=== PATIENT | male | born 1975 | race Caucasian/White ===

== ENCOUNTER 2017-05-06 10:32 | Emergency (ER) | payer OTHER ==
--- NOTE | 2017-05-06 10:47 | UC ---
Abdominal Pain Male HPI - HPI Summary HPI Summary: 41 year old male presents with complains of nausea/vomiting/diarrhea/stomach cramps. - History of Current Complaint Stated Complaint: N/V/D HEADACHE Time Seen by Provider: 05/06/17 10:46 - Allergies/Home Medications Allergies/Adverse Reactions: Allergies Allergy/AdvReac Type Severity Reaction Status Date / Time No Known Allergies Allergy Verified 05/06/17 10:55 Home Medications: Home Medications Iqouicl-Edhdyonzzkoce-Bmiflxws [Excedrin Migraine 250-250-65 mg] 1 tab PO ONCE 05/06/17 [History Confirmed 05/06/17] PMH/Surg Hx/FS Hx/Imm Hx Other History Of: Negative For: HIV, Hepatitis B, Hepatitis C - Surgical History Surgical History: Yes Surgery Procedure, Year, and Place: [place] [facility] [place], [facility] - Family History Known Family History: Positive: Other - mrsa Negative: Renal Disease, Blood Disorder - Social History Alcohol Use: None Substance Use Type: None Smoking Status (MU): Heavy Every Day Tobacco Smoker Type: Cigarettes Amount Used/How Often: 1 PPD Length of Time of Smoking/Using Tobacco: On and Off for 19 Years Have You Smoked in the Last Year: Yes Household Exposure Type: Cigarettes Review of Systems Constitutional: Negative Skin: Negative Eyes: Negative ENT: Negative Respiratory: Negative Cardiovascular: Negative Gastrointestinal: Abdominal Pain, Vomiting, Diarrhea, Nausea Genitourinary: Negative Motor: Negative Neurovascular: Negative Musculoskeletal: Negative Neurological: Negative Psychological: Negative All Other Systems Reviewed And Are Negative: Yes Physical Exam Triage Information Reviewed: Yes Eye Exam: Normal ENT Exam: Normal Dental Exam: Normal Neck exam: Normal Neck: Positive: 1 Respiratory Exam: Normal Cardiovascular Exam: Normal Abdominal Exam: Normal Musculoskeletal Exam: Normal Neurological Exam: Normal Psychological Exam: Normal Skin Exam: Normal Abd Pain Male Course/Dx - Differential Dx/Clinical Impression Provider Diagnoses: nausea. vomitting. cramps. diarrhea Discharge - Discharge Plan Condition: Stable Disposition: HOME Prescriptions: Dicyclomine CAP* [Bentyl CAP*] 10 mg PO ACHS PRN #30 cap PRN Reason: Pain - Abdominal Patient Education Materials: Acute Nausea and Vomiting (ED) Referrals: Coco Bains MD [Medical Doctor] - If Needed
[2017-05-06 10:55] VITALS: BP 112/80
== END 2017-05-06 11:30 | disposition home or self-care (01) ==
LOC: UCCORT 10:32
DX: R11.2 Nausea with vomiting, unspecified (principal); R19.7 Diarrhea, unspecified; R25.2 Cramp and spasm; F17.210 Nicotine dependence, cigarettes, uncomplicated
CPT/HCPCS: 99212; G0463

== ENCOUNTER 2017-06-18 14:53 | Emergency (ER) | payer OTHER ==
[2017-06-18 15:19] VITALS: BP 131/78
--- NOTE | 2017-06-18 15:19 | UC ---
Throat Pain/Nasal Mario HPI - HPI Summary HPI Summary: 41 YEAR OLD MALE PRESENTS WITH COMPLAINS OF SINUS CONGESTION, ITCHY EYES, AND CONGESTION. - History of Current Complaint Stated Complaint: SINUS COMPLAINT Time Seen by Provider: 06/18/17 15:18 Hx Obtained From: Patient Onset/Duration: Sudden Onset Severity: Moderate Pain Scale Used: 0-10 Numeric - 5 Associated Signs & Symptoms: Positive: Negative Related History: Seasonal Allergies - Epiglottits Risk Factors Epiglottis Risk Factors: Negative - Allergies/Home Medications Allergies/Adverse Reactions: Allergies Allergy/AdvReac Type Severity Reaction Status Date / Time No Known Allergies Allergy Verified 06/18/17 15:19 PMH/Surg Hx/FS Hx/Imm Hx Previously Healthy: Yes Other History Of: Negative For: HIV, Hepatitis B, Hepatitis C - Surgical History Surgical History: Yes Surgery Procedure, Year, and Place: Right Third Finger Cyst, 2006, [facility] – [place]. PDA Repair, 1979, [facility] - Family History Known Family History: Positive: Other - mrsa Negative: Renal Disease, Blood Disorder - Social History Alcohol Use: None Substance Use Type: None Smoking Status (MU): Heavy Every Day Tobacco Smoker Type: Cigarettes Amount Used/How Often: 1 PPD Length of Time of Smoking/Using Tobacco: On and Off for 19 Years Have You Smoked in the Last Year: Yes Household Exposure Type: Cigarettes Review of Systems Constitutional: Negative Skin: Negative Eyes: Negative ENT: Nasal Discharge, Sinus Congestion, Sinus Pain/Tenderness Respiratory: Negative Cardiovascular: Negative Gastrointestinal: Negative Genitourinary: Negative Motor: Negative Neurovascular: Negative Musculoskeletal: Negative Neurological: Negative Psychological: Negative All Other Systems Reviewed And Are Negative: Yes Physical Exam Triage Information Reviewed: Yes Vital Signs Reviewed: Yes Eye Exam: Normal ENT Exam: Normal Dental Exam: Normal Neck exam: Normal Neck: Positive: 1 Respiratory Exam: Normal Cardiovascular Exam: Normal Abdominal Exam: Normal Musculoskeletal Exam: Normal Neurological Exam: Normal Psychological Exam: Normal Skin Exam: Normal Throat Pain/Nasal Course/Dx - Differential Dx/Diagnosis Provider Diagnoses: SINUS CONGESTION. ITCHY EYES. EARACHE Discharge - Discharge Plan Condition: Stable Disposition: HOME Prescriptions: Amoxicillin PO (*) [Amoxicillin 500 MG CAP*] 500 mg PO TID #30 cap Fluticasone NASAL * [Flonase *] 2 spray BOTH NARES DAILY #1 spray LoraTADine TAB(NF) [Claritin 10 MG TAB(NF)] 10 mg PO DAILY #30 tab Naphazoline W/ Pheniramine [Opcon-A] 1 ayse OP Q8H PRN #1 bottle PRN Reason: Itching Patient Education Materials: Sinusitis (ED), Allergic Rhinitis (ED) Referrals: Non Staff,Doctor [Primary Care Provider] -
== END 2017-06-18 15:35 | disposition home or self-care (01) ==
LOC: UCCORT 14:53
DX: R09.81 Nasal congestion (principal); H57.8 Other specified disorders of eye and adnexa; H92.09 Otalgia, unspecified ear
CPT/HCPCS: 99212; G0463

== ENCOUNTER 2018-01-02 08:21 | Emergency (ER) | payer OTHER ==
[2018-01-02 08:39] VITALS: BP 138/79
--- NOTE | 2018-01-02 08:41 | UC ---
Upper Extremity HPI - HPI Summary HPI Summary: 42 y/o male presents to the urgent care c/o RT shoulder pain and RT side of neck pain s/p slipping on ice and falling last Tuesday12/27/2017. Pt reports he went to [facility] and all X-rays done were negative, Rx [place]. Pain still present 5/10 w/ radiation to the RT side of neck. Pt went back to work and pain was exacerbated w/ the lifting of boxes at work and associated w/ mild numbness around RT arm. 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 Pt denies fever, SOB, chest pain. BASHIR, dizziness, abdominal pain, N/V/D. - History of Current Complaint Stated Complaint: RIGHT SIDE NECK/SHOULDER PAIN Time Seen by Provider: 01/02/18 08:26 Hx Obtained From: Patient Onset/Duration: Sudden Onset, Lasting Days - 6 days, Still Present Severity Initially: Moderate Severity Currently: Moderate Pain Intensity: 6 Pain Scale Used: 0-10 Numeric Location Of Pain: Is Discrete @ - RT shoulder s/p fall, Radiates To - neck Character: Sharp, Spasmodic Aggravating Factor(s): Movement, Lifting Alleviating Factor(s): Ice, OTC Meds Associated Signs And Symptoms: Positive: Numbness/Tingling - RT forearm. Negative: Swelling, Redness, Bruising, Fever Related History: Dominant Hand Right - Risk Factors Non-Orthopedic Risk Factor: Negative DVT Risk Factors: Negative Septic Arthritis Risk Factor: Negative - Allergies/Home Medications Allergies/Adverse Reactions: Allergies Allergy/AdvReac Type Severity Reaction Status Date / Time No Known Allergies Allergy Verified 01/02/18 08:33 PMH/Surg Hx/FS Hx/Imm Hx Previously Healthy: Yes Other Cardiovascular History: PDA surgery as a child Other History Of: Negative For: HIV, Hepatitis B, Hepatitis C - Surgical History Surgical History: Yes Surgery Procedure, Year, and Place: Right Third Finger Cyst, 2006, [facility] [place]. PDA Repair, 1979, [facility] - Family History Known Family History: Positive: None - Pt denies FMHX, Other - mrsa Negative: Renal Disease, Blood Disorder - Social History Occupation: Employed Full-time Lives: With Family Alcohol Use: None Substance Use Type: None Smoking Status (MU): Heavy Every Day Tobacco Smoker Type: Cigarettes Amount Used/How Often: 1 PPD Length of Time of Smoking/Using Tobacco: On and Off for 19 Years Have You Smoked in the Last Year: Yes Household Exposure Type: Cigarettes Review of Systems Constitutional: Negative Skin: Negative Eyes: Negative ENT: Negative Respiratory: Negative Cardiovascular: Negative Gastrointestinal: Negative Genitourinary: Negative Motor: Negative Neurovascular: Negative Musculoskeletal: Decreased ROM - RT shoulder and RT side of neck s/p fall, Other : - RT side neck pain and and RT shoulder pain s/p fall Neurological: Negative Psychological: Negative Is Patient Immunocompromised?: No All Other Systems Reviewed And Are Negative: Yes Physical Exam - Summary Physical Exam Summary: Vital Signs Reviewed: Yes General: well developed, well nourished male sitting in the examining table w/o any apparent distress, Eyes: Positive: Conjunctiva Clear - PERRLA, EOMI, fundi grossly normal ENT: Positive: Normal ENT inspection, Hearing grossly normal, Pharynx normal, TMs normal Neck: Positive: Supple, Nontender, No Lymphadenopathy Respiratory: Positive: Chest non-tender, Lungs clear, Normal breath sounds, No respiratory distress Cardiovascular: Positive: RRR, No Murmur, Pulses Normal, Brisk Capillary Refill Abdomen Description: Positive: Nontender, No Organomegaly, Soft. Negative: CVA Tenderness (R), CVA Tenderness (L) Bowel Sounds: Positive: Present Musculoskeletal: Positive: Strength Intact, Other: - RT shoulder: The L shoulder is without obvious asymmetry or deformity when compared to the R shoulder. No surface trauma, ecchymosis, crepitus. No bony deformity or prominence of humeral head. No erythema, warmth. tender to palpation over the clavicle,scapula. and over Acromioclavicular joint and humeral head with no swelling, NT to palpation of the bicipital groove . NT to palpation of the muscles of the sternocleidomastoid, pectoralis, tenderness over biceps/triceps, deltoid, trapezius, . Limited ROM due to pain. "empty can and drop arm test unable to perform due to pain. No axillary tenderness or lymphadenopathy. Normal sensation over the deltoid and fingers. Distal motor and neurovascular status is intact. Decrease ROM on RT lateral bending of neck, w/ mild neck spasm Neurological Exam: Normal Psychological Exam: Normal Skin Exam: Normal Triage Information Reviewed: Yes Vital Signs: Initial Vital Signs Temp 99.2 F 01/02/18 08:30 Pulse 90 01/02/18 08:30 Resp 18 01/02/18 08:30 BP 138/79 01/02/18 08:30 Pulse Ox 98 01/02/18 08:30 Upper Extremity Course/Dx - Course Course Of Treatment: 42 y/o male presents to the urgent care c/o RT shoulder pain and RT side of neck pain s/p slipping on ice and falling last 12/27. Pt reports he went to [facility] and all X-rays done were negative, Rx [place]. Pain still present 5/10 w/ radiation to the RT side of neck. Pt went back to work and pain was exacerbated w/ the lifting of boxes at work and associated w/ mild numbness around RT arm. 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 Pt denies fever, SOB, chest pain. BASHIR, dizziness, abdominal pain, N/V/ D.Hx obtained. Pt w/ tenderness to palpation over the clavicle,scapula. and over Acromioclavicular joint and humeral head with no swelling. Decrease ROM of Rt shoulder due to pain and also decrease RT lateral bending of neck, w/ mild neck spasm on examination. Pt's Rx Naproxen PO and Flexeril PO to alleviate symptoms. Shoulder immobilized with a shoulder sling for 2-3 days. Advised to f/u w/ Orthopedic DR Larsen in 1 week if not improvement of symptoms. D/C instructions explained. Pt understood and agreed w/ plan of care. - Differential Dx/Diagnosis Differential Diagnosis/HQI/PQRI: Arthritis, Fracture (Closed), Strain, Sprain, Other - spasmodic torticollis Provider Diagnoses: 1- Acute RT shoulder pain s/p fall. 2-Spasmodic Torticollis Discharge - Discharge Plan Condition: Stable Disposition: HOME Prescriptions: Cyclobenzaprine TAB* [Flexeril 10 MG TAB*] 10 mg PO TID PRN #15 tab PRN Reason: Spasms - Neck Naproxen TAB* [Naprosyn 250 mg TAB*] 250 mg PO Q8H PRN #30 tab PRN Reason: Pain Patient Education Materials: Spasmodic Torticollis (ED), Shoulder Pain (ED) Forms: *Work Release Referrals: [facility] [place] [facility]YSICIAN REFERRAL [Outside] - 1 Week Camilo Larsen MD [Medical Doctor] - 1 Week Additional Instructions: 1-Please take medications as directed to alleviate pain and swelling. 2-Please apply ice, keep your shoulder immobilized with the shoulder sling for 2 -3days and then resume movement slowly 3- Please f/u with Orthopedic DR Larsen or your PCP in 1 week is not improvement of symptoms for further evaluation and treatment.
== END 2018-01-02 09:04 | disposition home or self-care (01) ==
LOC: UCCORT 08:21
DX: M25.511 Pain in right shoulder (principal); S13.4XXA Sprain of ligaments of cervical spine, initial encounter; F17.210 Nicotine dependence, cigarettes, uncomplicated; W00.0XXA Fall on same level due to ice and snow, initial encounter; Y93.9 Activity, unspecified; Y92.9 Unspecified place or not applicable; X50.0XXA Overexertion from strenuous movement or load, initial encounter; Y93.89 Activity, other specified; Y99.0 Civilian activity done for income or pay
CPT/HCPCS: 99213; G0463

== ENCOUNTER 2018-01-11 09:02 | Emergency (ER) | payer OTHER ==
[2018-01-11 09:19] VITALS: BP 135/86
--- NOTE | 2018-01-11 09:48 | UC ---
Skin Complaint HPI - HPI Summary HPI Summary: Rash two locations of the right clavicle and right lateral chest. No pain. There is itching. They have pets and dogs are in bed with them at times. - History of Current Complaint Chief Complaint: UCSkin Time Seen by Provider: 01/11/18 09:37 Stated Complaint: SKIN COMPLAINT Hx Obtained From: Patient Onset/Duration: Gradual Onset, Lasting Hours Skin Exposure Onset/Duration: Hours Ago Timing: Constant Onset Severity: Moderate Current Severity: Moderate Pain Intensity: 0 Location: Diffuse Character: Pruritus, Raised Aggravating Factor(s): Nothing Alleviating Factor(s): Nothing Associated Signs & Symptoms: Positive: Rash. Negative: Nausea, Vomiting, Numbness, Thirst, Diaphoresis, Weakness, Fever, Chills, Cough - Allergy/Home Medications Allergies/Adverse Reactions: Allergies Allergy/AdvReac Type Severity Reaction Status Date / Time No Known Allergies Allergy Verified 01/11/18 09:13 Review of Systems Skin: Rash All Other Systems Reviewed And Are Negative: Yes PMH/Surg Hx/FS Hx/Imm Hx Previously Healthy: No - PDA Other History Of: Negative For: HIV, Hepatitis B, Hepatitis C - Surgical History Surgical History: Yes Surgery Procedure, Year, and Place: Right Third Finger Cyst, 2006, [facility] [place]. PDA Repair, 1979, [facility] - Family History Known Family History: Positive: None - Pt denies FMHX, Other - mrsa Negative: Renal Disease, Blood Disorder - Social History Lives: With Family Alcohol Use: None Substance Use Type: None Smoking Status (MU): Heavy Every Day Tobacco Smoker Type: Cigarettes Amount Used/How Often: 1 PPD Length of Time of Smoking/Using Tobacco: On and Off for 19 Years Have You Smoked in the Last Year: Yes Household Exposure Type: Cigarettes Physical Exam Triage Information Reviewed: Yes Appearance: Well-Appearing, No Pain Distress, Well-Nourished Vital Signs: Initial Vital Signs Temp 99.4 F 01/11/18 09:13 Pulse 92 01/11/18 09:13 Resp 20 01/11/18 09:13 BP 135/86 01/11/18 09:13 Pulse Ox 99 01/11/18 09:13 Vital Signs Reviewed: Yes Eye Exam: Normal Eyes: Positive: Conjunctiva Clear ENT: Positive: Normal ENT inspection, Hearing grossly normal, Pharynx normal Neck: Positive: Supple, Nontender, No Lymphadenopathy Respiratory: Positive: Normal breath sounds, No respiratory distress, No accessory muscle use. Negative: Respiratory distress, Decreased breath sounds, Accessory muscle use, Crackles, Rhonchi, Stridor, Wheezing Cardiovascular: Positive: RRR, No Murmur, Pulses Normal Abdomen Description: Positive: No Organomegaly, Soft. Negative: Distended, Guarding Musculoskeletal: Positive: Strength Intact, ROM Intact, No Edema Neurological: Positive: Alert, Muscle Tone Normal. Negative: Fatigued Psychological: Positive: Age Appropriate Behavior Skin: Positive: rashes - papules in a group. NO vesicles. Course/Dx - Course Course Of Treatment: insect bites. Options are fleas or bed bugs. supportive care. - Differential Diagnoses - Skin Complaint Differential Diagnoses: Allergic Reaction, Anaphylaxis, Contact Dermatitis, Head Lice, Scabies, Juárez-Edmund Syndrome, Urticaria, Viral Exanthem - Diagnoses Provider Diagnoses: insect bites Discharge - Sign-Out/Discharge Documenting (check all that apply): Discharge - Discharge Plan Condition: Good Disposition: HOME Prescriptions: Triamcinolone 0.5% OINT * 1 applic TOPICAL BID #15 tube Patient Education Materials: Insect Bite or Sting (ED) Forms: *Work Release Referrals: Non Staff,Doctor [Primary Care Provider] - - Billing Disposition and Condition Condition: GOOD Disposition: HOME
== END 2018-01-11 10:01 | disposition home or self-care (01) ==
LOC: UCCORT 09:02
DX: S20.361A Insect bite (nonvenomous) of right front wall of thorax, initial encounter (principal); S40.261A Insect bite (nonvenomous) of right shoulder, initial encounter; W57.XXXA Bitten or stung by nonvenomous insect and other nonvenomous arthropods, initial encounter; Y92.9 Unspecified place or not applicable; F17.210 Nicotine dependence, cigarettes, uncomplicated
CPT/HCPCS: 99212; G0463

== ENCOUNTER 2018-07-09 18:48 | Emergency (ER) | payer OTHER ==
[2018-07-09 19:41] VITALS: BP 144/81
[2018-07-09] MEDS ORDERED: Benzonatate CAP* 100 MG PO ONE (20:05)
--- NOTE | 2018-07-09 20:05 | UC ---
Respiratory Complaint HPI - HPI Summary HPI Summary: Pt c/o sudden onset of cough, chest tightness, and nasal and chest congestion. X 2 days. Pt used nebulizer treatment at home and stated he felt much better after treatment. - History of Current Complaint Chief Complaint: UCRespiratory Stated Complaint: COUGH,CONGESTION Time Seen by Provider: 07/09/18 19:58 Hx Obtained From: Patient Onset/Duration: Sudden Onset, Lasting Days, Still Present Timing: Constant Severity Initially: Mild Severity Currently: Mild Pain Intensity: 0 Character: Cough: Productive, Sputum Description: - clear Aggravating Factors: Exertion, Deep Breaths, Recumbent Position Alleviating Factors: Bronchodilator Associated Signs And Symptoms: Positive: Wheezing, URI, Nasal Congestion Related History: Seasonal Allergies - Risk Factors Pulmonary Embolism Risk Factors: Negative Cardiac Risk Factors: Negative Pseudomonas Risk Factors: Negative Tuberculosis Risk Factors: Negative - Allergies/Home Medications Allergies/Adverse Reactions: Allergies Allergy/AdvReac Type Severity Reaction Status Date / Time No Known Allergies Allergy Verified 07/09/18 19:42 Home Medications: Home Medications Meloxicam [Mobic] 7.5 mg PO DAILY 07/09/18 [History Confirmed 07/09/18] PMH/Surg Hx/FS Hx/Imm Hx Previously Healthy: Yes Other History Of: Negative For: HIV, Hepatitis B, Hepatitis C - Surgical History Surgical History: Yes Surgery Procedure, Year, and Place: Right Third Finger Cyst, 2006, [facility] [place]. [facility] - Family History Known Family History: Positive: None - Pt denies FMHX, Cardiac Disease, Other - mrsa Negative: Renal Disease, Blood Disorder - Social History Occupation: Employed Full-time Lives: With Family Alcohol Use: None Substance Use Type: None Smoking Status (MU): Heavy Every Day Tobacco Smoker Type: Cigarettes Amount Used/How Often: 1 PPD Length of Time of Smoking/Using Tobacco: On and Off for 19 Years Have You Smoked in the Last Year: Yes Household Exposure Type: Cigarettes Review of Systems Constitutional: Chills Skin: Negative Eyes: Negative ENT: Sinus Congestion Respiratory: Cough Cardiovascular: Negative Gastrointestinal: Negative Genitourinary: Negative Motor: Negative Neurovascular: Negative Musculoskeletal: Negative Neurological: Negative Psychological: Negative Is Patient Immunocompromised?: No All Other Systems Reviewed And Are Negative: Yes Physical Exam Triage Information Reviewed: Yes Appearance: Well-Appearing Vital Signs: Initial Vital Signs Temp 98.9 F 07/09/18 19:38 Pulse 96 07/09/18 19:38 Resp 16 07/09/18 19:38 BP 144/81 07/09/18 19:38 Pulse Ox 100 07/09/18 19:38 Vital Signs Reviewed: Yes Eye Exam: Normal ENT: Positive: Nasal congestion Dental Exam: Normal Neck exam: Normal Respiratory: Positive: No respiratory distress, Other: - upper respiratory congestion Cardiovascular Exam: Normal Musculoskeletal Exam: Normal Neurological Exam: Normal Psychological Exam: Normal Skin Exam: Normal UC Diagnostic Evaluation - Laboratory O2 Sat by Pulse Oximetry: 100 Respiratory Course/Dx - Differential Dx/Diagnosis Differential Diagnosis/HQI/PQRI: Bronchitis, Influenza Provider Diagnoses: URI Discharge - Sign-Out/Discharge Documenting (check all that apply): Patient Departure All imaging exams completed and their final reports reviewed: No Studies - Discharge Plan Condition: Stable Disposition: HOME Prescriptions: Albuterol 2.5MG/3ML (0.083%)* [Ventolin 2.5 MG/3 ML NEB.SANDIP*] 2.5 mg INH Q4H PRN #1 box PRN Reason: Sob/Wheezing Albuterol HFA INHALER* [Ventolin HFA Inhaler*] 1 - 2 puff INH Q6H PRN #1 mdi PRN Reason: Sob/Wheezing Benzonatate CAP* [Tessalon 100 MG CAP*] 100 mg PO Q8H PRN #30 cap PRN Reason: Cough predniSONE TAB* [Deltasone 20 MG TAB*] 20 mg PO DAILY #4 tab Patient Education Materials: Upper Respiratory Infection (ED) Referrals: Sheryl Rodriguez NP [Primary Care Provider] - If Needed - Billing Disposition and Condition Condition: STABLE Disposition: Home
== END 2018-07-09 20:19 | disposition home or self-care (01) ==
LOC: UCCORT 18:48
DX: J06.9 Acute upper respiratory infection, unspecified (principal); F17.210 Nicotine dependence, cigarettes, uncomplicated
CPT/HCPCS: 99212; A9270-GY; G0463

== ENCOUNTER 2018-09-18 07:40 | Emergency (ER) | payer SELFPAY ==
[2018-09-18 07:56] VITALS: BP 107/71
--- NOTE | 2018-09-18 08:33 | UC ---
General HPI - HPI Summary HPI Summary: pt states his cat scratched him on the L side of his neck 6 days ago. this am, he awoke with some swelling, red and tenderness on L side of neck where he was scratched. he feel fine otherwise. no fever. cat is utd on shots. - History of Current Complaint Chief Complaint: UCSkin Stated Complaint: SKIN COMPLAINT NECK Time Seen by Provider: 09/18/18 08:20 Hx Obtained From: Patient Timing: Constant Pain Intensity: 0 Associated Signs & Symptoms: Negative: Fever, Headache - Allergy/Home Medications Allergies/Adverse Reactions: Allergies Allergy/AdvReac Type Severity Reaction Status Date / Time No Known Allergies Allergy Verified 09/18/18 07:53 Home Medications: Home Medications Omeprazole CAP* [Prilosec CAP* 20 MG] 20 mg PO DAILY 09/18/18 [History Confirmed 09/18/18] Rosuvastatin Calcium [Crestor] 20 mg PO DAILY 09/18/18 [History Confirmed ] PMH/Surg Hx/FS Hx/Imm Hx Endocrine History: Dyslipidemia GI/ History: Gastroesophageal Reflux Other History Of: Negative For: HIV, Hepatitis B, Hepatitis C - Surgical History Surgical History: Yes Surgery Procedure, Year, and Place: Right Third Finger Cyst, 2006, [facility] [place]. PDA Repair, 1979, [facility] - Family History Known Family History: Positive: None - Pt denies FMHX, Cardiac Disease, Other - mrsa Negative: Renal Disease, Blood Disorder - Social History Occupation: Employed Full-time Alcohol Use: Rare Substance Use Type: Marijuana Substance Use Comment - Amount & Last Used: olast used 09/17/18 Smoking Status (MU): Heavy Every Day Tobacco Smoker Type: Cigarettes Amount Used/How Often: 1 PPD Length of Time of Smoking/Using Tobacco: On and Off for 19 Years Have You Smoked in the Last Year: Yes Household Exposure Type: Cigarettes - Immunization History Vaccination Up to Date: Yes Review of Systems All Other Systems Reviewed And Are Negative: Yes Constitutional: Positive: Negative Skin: Positive: Rash Eyes: Positive: Negative ENT: Positive: Negative Respiratory: Positive: Negative Cardiovascular: Positive: Negative Gastrointestinal: Positive: Negative Genitourinary: Positive: Negative Motor: Positive: Negative Neurovascular: Positive: Negative Musculoskeletal: Positive: Negative Neurological: Positive: Negative Psychological: Positive: Negative Physical Exam Triage Information Reviewed: Yes Appearance: No Pain Distress Vital Signs: Initial Vital Signs Temp 98.1 F 09/18/18 07:52 Pulse 80 09/18/18 07:52 Resp 16 09/18/18 07:52 BP 107/71 09/18/18 07:52 Pulse Ox 100 09/18/18 07:52 Vital Signs Reviewed: Yes Eyes: Positive: Conjunctiva Clear ENT: Positive: Pharynx normal, TMs normal. Negative: Nasal congestion, Nasal drainage Neck: Positive: Supple, Other: - L side of neck with lymphadenopathy, tenderness and area ir red. No other neck adenopathy and no vesicles. Respiratory: Positive: Lungs clear, Normal breath sounds Cardiovascular: Positive: RRR, No Murmur Abdomen Description: Positive: Nontender, No Organomegaly, Soft Bowel Sounds: Positive: Present Musculoskeletal: Positive: ROM Intact Neurological: Positive: Alert Psychological: Positive: Age Appropriate Behavior Skin Exam: Normal Course/Dx - Course Course Of Treatment: given hx and PE, this is most c/w cat scratch dz and not cellulitis or shingles thus will tx with zpak. - Diagnoses Provider Diagnosis: Cat scratch fever Discharge - Sign-Out/Discharge Documenting (check all that apply): Patient Departure All imaging exams completed and their final reports reviewed: No Studies - Discharge Plan Condition: Stable Disposition: HOME Prescriptions: Azithromycin TAB* [Zithromax TAB (Z-LEILANI) 250 mg #6 tabs] 2 tab PO .TODAY, THEN 1 DAILY #1 leilani Patient Education Materials: Cat Scratch Disease (ED) Referrals: Sheryl Rodriguez NP [Primary Care Provider] - 2 Days Additional Instructions: RECHECK IMMEDIATELY IF YOU HAVE ANY WORSENING OR DEVELOPS VESICLES. - Billing Disposition and Condition Condition: STABLE Disposition: Home
== END 2018-09-18 08:40 | disposition home or self-care (01) ==
LOC: UCCORT 07:40
DX: A28.1 Cat-scratch disease (principal); W55.03XA Scratched by cat, initial encounter; Y92.9 Unspecified place or not applicable; E78.5 Hyperlipidemia, unspecified; K21.9 Gastro-esophageal reflux disease without esophagitis; F17.210 Nicotine dependence, cigarettes, uncomplicated
CPT/HCPCS: 99212; G0463

== ENCOUNTER 2019-09-05 10:22 | Emergency (ER) | payer OTHER ==
[2019-09-05 10:52] VITALS: BP 122/80
--- NOTE | 2019-09-05 11:51 | UC ---
Throat Pain/Nasal Mario HPI - HPI Summary HPI Summary: 43-year-old male comes in with chief complaint of sinusitis symptoms.'s been having runny nose and sinus pressure for about 3 days. Rhinorrhea is green with blood in it this morning. Has not tried any [id number] medications. No complaint of shortness of breath or wheezing. Hot steamy showers do help with the symptoms. - History of Current Complaint Chief Complaint: UCGeneralIllness Stated Complaint: SINUS COMPLAINT Time Seen by Provider: 09/05/19 11:17 Pain Intensity: 0 - Allergies/Home Medications Allergies/Adverse Reactions: Allergies Allergy/AdvReac Type Severity Reaction Status Date / Time No Known Allergies Allergy Verified 09/05/19 10:47 Home Medications: Home Medications Losartan TAB* [Cozaar TAB*] 25 mg PO DAILY 09/05/19 [History Confirmed 09/05/19] PMH/Surg Hx/FS Hx/Imm Hx Previously Healthy: Yes Endocrine History: Dyslipidemia Cardiovascular History: Hypertension GI/ History: Gastroesophageal Reflux Other History Of: Negative For: HIV, Hepatitis B, Hepatitis C - Surgical History Surgical History: Yes Surgery Procedure, Year, and Place: Right Third Finger Cyst, 2006, [facility] [place]. PATENT DUCTUS ARTERIOSIS REPAIR, 1979, [facility] - Family History Known Family History: Positive: None - Pt denies FMHX, Cardiac Disease, Other - mrsa Negative: Renal Disease, Blood Disorder - Social History Alcohol Use: Rare Substance Use Type: Marijuana Substance Use Comment - Amount & Last Used: occasionally Smoking Status (MU): Heavy Every Day Tobacco Smoker Type: Cigarettes Amount Used/How Often: 1/2 ppd Length of Time of Smoking/Using Tobacco: On and Off for 19 Years Have You Smoked in the Last Year: Yes Household Exposure Type: Cigarettes - Immunization History Vaccination Up to Date: Yes Review of Systems All Other Systems Reviewed And Are Negative: Yes Constitutional: Positive: Other - see hpi Skin: Positive: Negative Eyes: Positive: Negative ENT: Positive: Nasal Discharge, Sinus Congestion, Sinus Pain/Tenderness Respiratory: Positive: Negative Cardiovascular: Positive: Negative Gastrointestinal: Positive: Negative Motor: Positive: Negative Neurovascular: Positive: Negative Musculoskeletal: Positive: Negative Neurological: Positive: Negative Psychological: Positive: Negative Is Patient Immunocompromised?: No Physical Exam Triage Information Reviewed: Yes Appearance: No Pain Distress, Well-Nourished, Ill-Appearing - mild Vital Signs: Initial Vital Signs Temp 98.9 F 09/05/19 10:47 Pulse 82 09/05/19 10:47 Resp 16 09/05/19 10:47 BP 122/80 09/05/19 10:47 Pulse Ox 99 09/05/19 10:47 Vital Signs Reviewed: Yes Eye Exam: Normal Eyes: Positive: Conjunctiva Clear ENT: Positive: Pharyngeal erythema, Nasal congestion, Nasal drainage, TMs normal Neck: Positive: Supple Respiratory: Positive: Lungs clear, Normal breath sounds, No respiratory distress Cardiovascular: Positive: RRR Musculoskeletal: Positive: Strength Intact, ROM Intact Neurological: Positive: Alert, Muscle Tone Normal Psychological: Positive: Age Appropriate Behavior Skin Exam: Normal Throat Pain/Nasal Course/Dx - Course Course Of Treatment: DISCUSSED VIRAL VERSES BACTERIAL INFECTIONS AND THE ROLE OF ANTIBIOTICS. THE PATIENT PREFERS TO BE ON ANTIBIOTICS AT THIS TIME. - Differential Dx/Diagnosis Provider Diagnosis: Sinusitis Discharge ED - Sign-Out/Discharge Documenting (check all that apply): Patient Departure All imaging exams completed and their final reports reviewed: No Studies - Discharge Plan Condition: Stable Disposition: HOME Prescriptions: Amoxicillin PO (*) [Amoxicillin 875 MG (*)] 875 mg PO BID #20 tab Fluticasone NASAL SPRAY 50MCG* [Flonase NASAL SPRAY 50MCG*] 2 spray BOTH NARES DAILY #1 btl Patient Education Materials: Sinusitis (ED) Forms: *Work Release Referrals: Sheryl Rodriguez NP [Primary Care Provider] - Additional Instructions: FOLLOW UP WITH YOUR DOCTOR IF NOT COMPLETELY IMPROVED. GET REEVALUATED SOONER IF NOT IMPROVING OR WORSE OR ANY QUESTIONS OR CONCERNS. - Billing Disposition and Condition Condition: STABLE Disposition: Home
== END 2019-09-05 11:56 | disposition home or self-care (01) ==
LOC: UCCORT 10:22
DX: J32.9 Chronic sinusitis, unspecified (principal); I10 Essential (primary) hypertension; F17.210 Nicotine dependence, cigarettes, uncomplicated; Z79.899 Other long term (current) drug therapy
CPT/HCPCS: 99212; G0463

== ENCOUNTER 2019-10-19 16:11 | Emergency (ER) | payer OTHER ==
[2019-10-19 18:30] VITALS: BP 129/79
[2019-10-19 18:53] LABS: Influenza A Molecular NEGATIVE (Negative); Influenza B Molecular NEGATIVE (Negative)
--- NOTE | 2019-10-19 19:11 | UC ---
Throat Pain/Nasal Mario HPI - HPI Summary HPI Summary: 43-year-old male comes in with a chief complaint of upper respiratory tract infection symptoms for 3-4 days. He's got some rhinorrhea some of it is blood- tinged. Got frontal sinus pressure is postnasal drip cough and congestion. Got mild sore throat. No myalgias. - History of Current Complaint Chief Complaint: UCRespiratory Stated Complaint: CHEST CONGESTION Time Seen by Provider: 10/19/19 18:45 Pain Intensity: 0 - Allergies/Home Medications Allergies/Adverse Reactions: Allergies Allergy/AdvReac Type Severity Reaction Status Date / Time No Known Allergies Allergy Verified 10/19/19 18:20 Home Medications: Home Medications diphenhydrAMINE HCl [Allergy Medication] 25 mg PO PRN 10/19/19 [History] PMH/Surg Hx/FS Hx/Imm Hx Previously Healthy: Yes Endocrine History: Dyslipidemia Cardiovascular History: Hypertension GI/ History: Gastroesophageal Reflux Other History Of: Negative For: HIV, Hepatitis B, Hepatitis C - Surgical History Surgical History: Yes Surgery Procedure, Year, and Place: Right [place]inger [place] [facility] [place]ENT DUCTUS ARTERIOSIS REPAIR, 1979, [facility] - Family History Known Family History: Positive: None - Pt denies FMHX, Cardiac Disease, Other - mrsa Negative: Renal Disease, Blood Disorder - Social History Alcohol Use: Rare Substance Use Type: Marijuana Substance Use Comment - Amount & Last Used: occasionally Smoking Status (MU): Heavy Every Day Tobacco Smoker Type: Cigarettes Amount Used/How Often: 1/2 ppd Length of Time of Smoking/Using Tobacco: On and Off for 19 Years Have You Smoked in the Last Year: Yes Household Exposure Type: Cigarettes - Immunization History Vaccination Up to Date: Yes Review of Systems All Other Systems Reviewed And Are Negative: Yes Constitutional: Positive: Other - SEE HPI Skin: Positive: Negative Eyes: Positive: Negative ENT: Positive: Sore Throat, Nasal Discharge, Sinus Congestion, Sinus Pain/ Tenderness Respiratory: Positive: Cough Cardiovascular: Positive: Negative Gastrointestinal: Positive: Negative Motor: Positive: Negative Neurovascular: Positive: Negative Musculoskeletal: Positive: Negative Neurological: Positive: Negative Psychological: Positive: Negative Is Patient Immunocompromised?: No Physical Exam Triage Information Reviewed: Yes Appearance: No Pain Distress, Well-Nourished, Ill-Appearing - MILD Vital Signs: Initial Vital Signs Temp 97.6 F 10/19/19 18:22 Pulse 76 10/19/19 18:22 Resp 20 10/19/19 18:22 BP 129/79 10/19/19 18:22 Pulse Ox 99 10/19/19 18:22 Vital Signs Reviewed: Yes Eye Exam: Normal Eyes: Positive: Conjunctiva Clear ENT: Positive: Pharyngeal erythema, Nasal congestion, Nasal drainage, TMs normal Neck: Positive: Supple Respiratory: Positive: Lungs clear, Normal breath sounds, No respiratory distress Cardiovascular: Positive: RRR Musculoskeletal: Positive: Strength Intact, ROM Intact Neurological: Positive: Alert, Muscle Tone Normal Psychological: Positive: Normal Response To Family, Age Appropriate Behavior Skin Exam: Normal Throat Pain/Nasal Course/Dx - Course Course Of Treatment: DISCUSSED VIRAL VERSES BACTERIAL INFECTIONS AND THE ROLE OF ANTIBIOTICS. THE PATIENT PREFERS TO BE ON ANTIBIOTICS AT THIS TIME. - Differential Dx/Diagnosis Provider Diagnosis: Upper respiratory infection Discharge ED - Sign-Out/Discharge Documenting (check all that apply): Patient Departure All imaging exams completed and their final reports reviewed: No Studies - Discharge Plan Condition: Stable Disposition: HOME Prescriptions: Amoxicillin PO (*) [Amoxicillin 875 MG (*)] 875 mg PO BID #20 tab Patient Education Materials: Upper Respiratory Infection (ED) Referrals: Sheryl Rodriguez NP [Primary Care Provider] - Additional Instructions: FOLLOW UP WITH YOUR DOCTOR IF NOT COMPLETELY IMPROVED. GET REEVALUATED SOONER IF NOT IMPROVING OR WORSE OR ANY QUESTIONS OR CONCERNS. - Billing Disposition and Condition Condition: STABLE Disposition: Home
== END 2019-10-19 19:17 | disposition home or self-care (01) ==
LOC: UCCORT 16:11
DX: J06.9 Acute upper respiratory infection, unspecified (principal); I10 Essential (primary) hypertension; F17.210 Nicotine dependence, cigarettes, uncomplicated
CPT/HCPCS: 99212; G0463

== ENCOUNTER 2019-12-03 16:24 | Emergency (ER) | payer OTHER ==
[2019-12-03 17:02] VITALS: BP 121/99
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
== END 2019-12-03 18:00 | disposition home or self-care (01) ==
LOC: UCCORT 16:24
DX: R07.81 Pleurodynia (principal); F17.210 Nicotine dependence, cigarettes, uncomplicated
CPT/HCPCS: 99211; G0463

== ENCOUNTER 2021-09-23 05:58 | Observation (INO) ==
[2021-09-23] MEDS ORDERED: Dexamethasone IV 4 MG/ML VIAL 1 ml VIAL IV SLOW PU ONE (06:00)
[2021-09-23] MEDS ORDERED: Famotidine IV 10 MG/ML 2 ml VIAL (20 mg) IV ONE (06:00)
[2021-09-23] MEDS ORDERED: Lactated Ringers 1000 ml BAG 1,000 ML IV SCH (06:00)
[2021-09-23] MEDS ORDERED: Buffered Lidocaine 1% SYRIN 1 ml INTRADERM ONE ×2 (06:00→06:24)
[2021-09-23] MEDS ORDERED: ceFAZolin 2 GM PREMIX 2 GM/50 ML BAG ONE (06:23)
[2021-09-23] MEDS ORDERED: Dexamethasone IV 4 MG/ML VIAL 1 ml VIAL ONE ×2 (06:23→09:53)
[2021-09-23] MEDS ORDERED: Famotidine IV 10 MG/ML 2 ml VIAL (20 mg) ONE (06:24)
[2021-09-23] MEDS ORDERED: Lidocaine 2% PF 5 ML VIAL ONE ×2 (06:54→10:53)
[2021-09-23] MEDS ORDERED: Phenylephrine IV 10 MG/ML 1 ml VIAL ONE ×2 (06:54→10:16)
[2021-09-23] MEDS ORDERED: fentaNYL 100 mcg/2 ml 50 MCG/ML VIAL ONE (06:54)
[2021-09-23] MEDS ORDERED: Remifentanil 2 MG VIAL ONE ×2 (06:55→11:06)
[2021-09-23] MEDS ORDERED: HYDROmorphone 0.5 MG/0.5 ML SYRINGE ONE (06:55)
[2021-09-23] MEDS ORDERED: Propofol 10 MG/ML 20 ML BTL ONE (07:15)
[2021-09-23] MEDS ORDERED: ceFAZolin VIAL VIAL ONE (07:16)
[2021-09-23] MEDS ORDERED: Lidocaine 1% w EPI 1:100,000 MDV 20 ML VIAL ONE (07:16)
[2021-09-23] MEDS ORDERED: Rocuronium 50 mg VIAL 10 mg/ml 5 ml VIAL (50 mg) ONE (07:19)
[2021-09-23] MEDS ORDERED: Succinylcholine 200 mg VIAL 20 mg/ml 10 ml VIAL (200 mg) ONE (07:20)
[2021-09-23] MEDS ORDERED: Midazolam 5 mg/5 ml VIAL 1 mg/ml 5 ml VIAL (5 mg) ONE (07:23)
[2021-09-23] MEDS ORDERED: HYDROcodone/ACETAMIN 5/325 mg TAB PO PRN (08:12)
[2021-09-23] MEDS ORDERED: Naloxone 0.4 mg VIAL 0.4 mg/ml 1 ml VIAL IV PRN (08:12)
[2021-09-23] MEDS ORDERED: fentaNYL 100 mcg/2 ml 50 MCG/ML VIAL IV PRN (08:12)
[2021-09-23] MEDS ORDERED: HYDROmorphone 1 MG/1 ML SYRINGE IV PRN (08:12)
[2021-09-23] MEDS ORDERED: Prochlorperazine 5 mg/ml 2 ml VIAL (10 mg) IV PRN (08:12)
[2021-09-23] MEDS ORDERED: oxyCODONE/Acetamin 5/325 mg TAB PO PRN (08:12)
[2021-09-23] MEDS ORDERED: Esmolol 10 MG/ML 10 ML (100 mg) ONE (08:54)
[2021-09-23] MEDS ORDERED: Metoprolol Tartrate 5 mg VIAL 5 ml VIAL (1 mg/ml) ONE (09:01)
[2021-09-23] MEDS ORDERED: Phenylephrine 40 mcg/mL 10mL (400mcg) SYRINGE ONE (09:33)
[2021-09-23] MEDS ORDERED: EPHEDrine (Pressors) 50 MG/ML VIAL ONE (09:36)
[2021-09-23] MEDS ORDERED: Propofol 10 mg/ml 100 ML BTL 300 ML ONE (10:05)
[2021-09-23] MEDS ORDERED: Propofol 10 mg/ml 100 ML BTL 0 ML ONE (10:06)
[2021-09-23] MEDS ORDERED: Ondansetron 4 mg VIAL 2 MG/ML 2 ml VIAL IV PRN (13:54)
[2021-09-23] MEDS: HYDROcodone/ACETAMIN 5/325 mg TAB PO PRN (18:13)
[2021-09-23] MEDS ORDERED: NS 0.9% 500 ml BAG 500 ML IV ONE (18:25)
[2021-09-23] MEDS ORDERED: Lactated Ringers 1000 ml BAG 1,000 ML IV ONE (19:32)
[2021-09-23 20:05] LABS: ABS Lymphocytes 0.6 10^3/ul (1.0-4.8); ABS Monocytes 0.9 10^3/ul (0-0.8); ABS Neutrophils 18.8 10^3/ul (1.5-7.7); Hematocrit 45 % (42-52); Hemoglobin 15.4 g/dL (14.0-18.0); Lymphocyte % 2.9 %; Mean Corpuscular HGB Conc 34 g/dL (31-36); Mean Corpuscular Hemoglobin 33 pg (27-31); Mean Corpuscular Volume 95 fL (80-94); Mean Platelet Volume 8.1 fL (7.4-10.4); Platelet Count 232 10^3/uL (150-450); Red Blood Count 4.73 10^6 /uL (4.18-5.48); Red Cell Distribution Width 13 % (10-15); White Blood Count 20.3 10^3/uL (3.5-10.8)
[2021-09-23 20:12] LABS: INR 1.17 (0.86-1.15)
[2021-09-23 20:14] LABS: Calcium 9.9 mg/dL (8.6-10.3); Magnesium 1.9 mg/dL (1.9-2.7); Potassium 4.5 mmol/L (3.5-5.0); eGFR CKD-EPI 79.7 (>60)
[2021-09-23 20:31] LABS: TSH Ultra Thyroid Stim Horm 0.8 mcIU/mL (0.34-5.60)
[2021-09-23] MEDS ORDERED: Magnesium Sulfate 2 gm BAG 2 GM/50 ML BAG IVPB ONE (20:44)
[2021-09-24 01:52] LABS: Hematocrit 43 % (42-52); Hemoglobin 14.8 g/dL (14.0-18.0); Mean Corpuscular HGB Conc 34 g/dL (31-36); Mean Corpuscular Hemoglobin 33 pg (27-31); Mean Corpuscular Volume 95 fL (80-94); Mean Platelet Volume 8.2 fL (7.4-10.4); Platelet Count 248 10^3/uL (150-450); Red Blood Count 4.57 10^6 /uL (4.18-5.48); Red Cell Distribution Width 13 % (10-15)
[2021-09-24 02:05] LABS: ABS Lymphocytes 1.2 10^3/ul (1.0-4.8); ABS Monocytes 1.6 10^3/ul (0-0.8); ABS Neutrophils 20.1 10^3/ul (1.5-7.7); Lymphocyte % 5.1 %
[2021-09-24 02:07] LABS: Calcium 9.3 mg/dL (8.6-10.3); Potassium 4.2 mmol/L (3.5-5.0); eGFR CKD-EPI 95.2 (>60)
[2021-09-24 04:28] LABS: Urine Appearance Clear; Urine Bilirubin Negative (Negative); Urine Blood 1+ (Negative); Urine Color Straw; Urine Glucose Negative (Negative); Urine Ketones Negative (Negative); Urine Nitrite Negative (Negative); Urine Protein Negative (Negative); Urine Urobilinogen Negative (Negative)
[2021-09-24 04:29] LABS: Urine Bacteria Absent (Absent); Urine Red Blood Cell Trace(0-2/hpf) (Absent); Urine White Blood Cell Trace(0-5/hpf) (Absent)
[2021-09-24] MEDS: HYDROcodone/ACETAMIN 5/325 mg TAB PO PRN ×3 (08:00→20:39)
[2021-09-25 06:31] LABS: ABS Eosinophils 0.1 10^3/ul (0-0.6); ABS Lymphocytes 3.6 10^3/ul (1.0-4.8); ABS Monocytes 1.4 10^3/ul (0-0.8); ABS Neutrophils 7.3 10^3/ul (1.5-7.7); Eosinophil % 0.5 %; Hematocrit 47 % (42-52); Hemoglobin 15.9 g/dL (14.0-18.0); Lymphocyte % 28.8 %; Mean Corpuscular HGB Conc 34 g/dL (31-36); Mean Corpuscular Hemoglobin 33 pg (27-31); Mean Corpuscular Volume 96 fL (80-94); Platelet Count 218 10^3/uL (150-450); Red Blood Count 4.83 10^6 /uL (4.18-5.48); Red Cell Distribution Width 13 % (10-15); White Blood Count 12.4 10^3/uL (3.5-10.8)
[2021-09-25 07:20] LABS: Calcium 9.1 mg/dL (8.6-10.3); Magnesium 2.3 mg/dL (1.9-2.7); Potassium 4.5 mmol/L (3.5-5.0); eGFR CKD-EPI 92.9 (>60)
[2021-09-25] MEDS: HYDROcodone/ACETAMIN 5/325 mg TAB PO PRN (09:47)
[2021-09-25 11:00] VITALS: BP 127/77
== END 2021-09-25 13:15 | disposition home or self-care (01) ==
LOC: INTOOBSV 05:58 → AA 05:58 → SSU 15:23
PROVIDERS: ADMIT Neurological Surgery; ATTEND Neurological Surgery